=== PATIENT | female | born 1945 | race Caucasian/White ===

== ENCOUNTER 2016-11-28 09:17 | Inpatient (IN) | payer MEDICARE, OTHER ==
[~2016-11-28] VITALS: Ht 152.4 cm; Wt 90.0 kg
[2016-11-28] MEDS ORDERED: DILTIAZEM 24HR120 MG PO (17:02)
[2016-11-28] MEDS ORDERED: SYMMETREL 100100 MG PO (17:02)
[2016-11-28] MEDS ORDERED: NEURONTIN 300300 MG PO (17:02)
[2016-11-28] MEDS ORDERED: IMDUR ER TAB 3030 MG PO (17:03)
[2016-11-28] MEDS ORDERED: LASIX TAB 20 MG20 MG PO (17:03)
[2016-11-28] MEDS ORDERED: GLUCOPHAGE1000 MG PO (17:04)
[2016-11-28] MEDS ORDERED: LISINOPRIL20 MG PO (17:04)
[2016-11-28] MEDS ORDERED: SYNTHROID 50 M50 MCG PO (17:04)
[2016-11-28] MEDS ORDERED: REGLAN 10 MG TA10 MG PO (17:05)
[2016-11-28] MEDS ORDERED: OMEPRAZOLE20 MG PO (17:10)
[2016-11-28] MEDS ORDERED: MIRTAZAPINE15 MG PO (17:10)
[2016-11-28] MEDS ORDERED: REQUIP2 MG PO ×2 (17:11→17:31)
[2016-11-28] MEDS ORDERED: SERTRALINE HCL100 MG PO (17:11)
[2016-11-28] MEDS ORDERED: OXYCODONE HCL10 MG PO (17:11)
[2016-11-28] MEDS ORDERED: IBUPROFEN600 MG PO (17:12)
[2016-11-28] MEDS ORDERED: GAVILYTE-G SO4000 ML PO (17:12)
[2016-11-28 17:15] LABS: HEMOGLOBIN 11.1 gm/dl (12.3-15.3); RED BLOOD COUNT 4.06 M/UL (4.00-5.10); WHITE BLOOD COUNT 15.6 K/UL (4.5-11.0)
[2016-11-28] MEDS ORDERED: LANTUS100 UNIT/1 SQ ×2 (17:16→17:17)
[2016-11-28] MEDS ORDERED: VISTARIL 25 MG25 MG PO (17:31)
[2016-11-28 17:40] LABS: BUN/CREATININE RATIO 18 (0-10)
[2016-11-29 04:05] LABS: HEMOGLOBIN 10.9 gm/dl (12.3-15.3); RED BLOOD COUNT 4.01 M/UL (4.00-5.10); WHITE BLOOD COUNT 12.5 K/UL (4.5-11.0)
[2016-11-30 03:47] LABS: HEMOGLOBIN 9.5 gm/dl (12.3-15.3)
[2016-11-30 03:55] LABS: RED BLOOD COUNT 3.5 M/UL (4.00-5.10); WHITE BLOOD COUNT 4.9 K/UL (4.5-11.0)
[2016-12-01 05:55] LABS: HEMOGLOBIN 9.4 gm/dl (12.3-15.3); RED BLOOD COUNT 3.5 M/UL (4.00-5.10); WHITE BLOOD COUNT 5.4 K/UL (4.5-11.0)
[2016-12-01 06:09] LABS: BUN/CREATININE RATIO 32 (0-10)
[2016-12-02 03:54] LABS: HEMOGLOBIN 9.4 gm/dl (12.3-15.3); RED BLOOD COUNT 3.54 M/UL (4.00-5.10)
[2016-12-02 03:58] LABS: WHITE BLOOD COUNT 3.8 K/UL (4.5-11.0)
[2016-12-02 04:15] LABS: BUN/CREATININE RATIO 38 (0-10)
[2016-12-03 03:57] LABS: HEMOGLOBIN 9.6 gm/dl (12.3-15.3); RED BLOOD COUNT 3.58 M/UL (4.00-5.10); WHITE BLOOD COUNT 4.6 K/UL (4.5-11.0)
[2016-12-03 04:20] LABS: BUN/CREATININE RATIO 49 (0-10)
[2016-12-04 04:22] LABS: HEMOGLOBIN 9.6 gm/dl (12.3-15.3); RED BLOOD COUNT 3.61 M/UL (4.00-5.10); WHITE BLOOD COUNT 4.3 K/UL (4.5-11.0)
[2016-12-04 04:38] LABS: BUN/CREATININE RATIO 45 (0-10)
[2016-12-05 03:37] LABS: HEMOGLOBIN 10.3 gm/dl (12.3-15.3); RED BLOOD COUNT 3.82 M/UL (4.00-5.10); WHITE BLOOD COUNT 5.3 K/UL (4.5-11.0)
[2016-12-05 04:02] LABS: BUN/CREATININE RATIO 46 (0-10)
[2016-12-06 03:40] LABS: HEMOGLOBIN 10.6 gm/dl (12.3-15.3); RED BLOOD COUNT 3.85 M/UL (4.00-5.10); WHITE BLOOD COUNT 4.2 K/UL (4.5-11.0)
[2016-12-06 04:07] LABS: BUN/CREATININE RATIO 46 (0-10)
[2016-12-07 04:10] LABS: HEMOGLOBIN 11.1 gm/dl (12.3-15.3); RED BLOOD COUNT 4.1 M/UL (4.00-5.10)
[2016-12-07 04:12] LABS: BUN/CREATININE RATIO 46 (0-10)
[2016-12-07 04:15] LABS: WHITE BLOOD COUNT 7.1 K/UL (4.5-11.0)
[2016-12-08 03:30] LABS: HEMOGLOBIN 10.3 gm/dl (12.3-15.3); RED BLOOD COUNT 3.77 M/UL (4.00-5.10)
[2016-12-08 03:51] LABS: BUN/CREATININE RATIO 47 (0-10)
[2016-12-08 04:08] LABS: WHITE BLOOD COUNT 4.8 K/UL (4.5-11.0)
[2016-12-09 04:02] LABS: HEMOGLOBIN 10.2 gm/dl (12.3-15.3); RED BLOOD COUNT 3.72 M/UL (4.00-5.10); WHITE BLOOD COUNT 5.3 K/UL (4.5-11.0)
[2016-12-09 04:10] LABS: BUN/CREATININE RATIO 43 (0-10)
[2016-12-10 06:04] LABS: RED BLOOD COUNT 3.6 M/UL (4.00-5.10); WHITE BLOOD COUNT 4.8 K/UL (4.5-11.0)
[2016-12-10 06:26] LABS: BUN/CREATININE RATIO 40 (0-10)
[2016-12-11 07:07] LABS: BUN/CREATININE RATIO 40 (0-10)
[2016-12-11 07:19] LABS: HEMOGLOBIN 10.1 gm/dl (12.3-15.3); RED BLOOD COUNT 3.67 M/UL (4.00-5.10); WHITE BLOOD COUNT 5.8 K/UL (4.5-11.0)
[2016-12-12 04:54] LABS: HEMOGLOBIN 10.3 gm/dl (12.3-15.3); RED BLOOD COUNT 3.73 M/UL (4.00-5.10); WHITE BLOOD COUNT 6.2 K/UL (4.5-11.0)
[2016-12-12 04:58] LABS: BUN/CREATININE RATIO 38 (0-10)
[2016-12-13 04:22] LABS: BUN/CREATININE RATIO 30 (0-10)
[2016-12-13 04:23] LABS: HEMOGLOBIN 10.3 gm/dl (12.3-15.3); RED BLOOD COUNT 3.74 M/UL (4.00-5.10); WHITE BLOOD COUNT 8.5 K/UL (4.5-11.0)
[2016-12-14 05:04] LABS: HEMOGLOBIN 9.9 gm/dl (12.3-15.3); RED BLOOD COUNT 3.61 M/UL (4.00-5.10); WHITE BLOOD COUNT 8.4 K/UL (4.5-11.0)
[2016-12-15 10:53] LABS: HEMOGLOBIN 10.4 gm/dl (12.3-15.3); RED BLOOD COUNT 3.74 M/UL (4.00-5.10); WHITE BLOOD COUNT 10.1 K/UL (4.5-11.0)
== END 2016-12-15 14:51 | DRG 853 ==
LOC: MED SURG 4 16:30 → CCU 16:30 → MED SURG 4 12-09 19:33
PROVIDERS: Family Medicine; Internal Medicine; Internal Medicine Critical Care Medicine; Internal Medicine Infectious Disease; Internal Medicine Pulmonary Disease; ADMIT Internal Medicine
PROC: 0BH17EZ Insertion of Endotracheal Airway into Trachea, Via Natural or Artificial Opening (ICD-10-PCS; principal; 2016-11-28)
PROC: 5A1955Z Respiratory Ventilation, Greater than 96 Consecutive Hours (ICD-10-PCS; principal; 2016-11-28)
PROC: 3E0G76Z Introduction of Nutritional Substance into Upper GI, Via Natural or Artificial Opening (ICD-10-PCS; 2016-11-28)
PROC: 0B9C8ZX Drainage of Right Upper Lung Lobe, Via Natural or Artificial Opening Endoscopic, Diagnostic (ICD-10-PCS; 2016-11-29)
PROC: 0BJ08ZZ Inspection of Tracheobronchial Tree, Via Natural or Artificial Opening Endoscopic (ICD-10-PCS; 2016-11-29)
PROC: 0B9J8ZX Drainage of Left Lower Lung Lobe, Via Natural or Artificial Opening Endoscopic, Diagnostic (ICD-10-PCS; 2016-11-29)
PROC: 05HM33Z Insertion of Infusion Device into Right Internal Jugular Vein, Percutaneous Approach (ICD-10-PCS; 2016-11-30)
PROC: B543ZZA Ultrasonography of Right Jugular Veins, Guidance (ICD-10-PCS; 2016-11-30)
DX: A41.9 Sepsis, unspecified organism (principal); J18.9 Pneumonia, unspecified organism; J80 Acute respiratory distress syndrome; E87.1 Hypo-osmolality and hyponatremia; E66.2 Morbid (severe) obesity with alveolar hypoventilation; D61.818 Other pancytopenia; R00.1 Bradycardia, unspecified; T46.1X5A Adverse effect of calcium-channel blockers, initial encounter; Y92.230 Patient room in hospital as the place of occurrence of the external cause; N19 Unspecified kidney failure; D69.59 Other secondary thrombocytopenia; E87.6 Hypokalemia; E83.42 Hypomagnesemia; R53.1 Weakness; K74.69 Other cirrhosis of liver; K75.81 Nonalcoholic steatohepatitis (NASH); J84.112 Idiopathic pulmonary fibrosis; K72.90 Hepatic failure, unspecified without coma; E11.65 Type 2 diabetes mellitus with hyperglycemia; E03.9 Hypothyroidism, unspecified; F32.9 Major depressive disorder, single episode, unspecified; F51.04 Psychophysiologic insomnia; G25.81 Restless legs syndrome; G89.29 Other chronic pain; M54.9 Dorsalgia, unspecified; F41.9 Anxiety disorder, unspecified; Z88.5 Allergy status to narcotic agent; I10 Essential (primary) hypertension; Z88.8 Allergy status to other drugs, medicaments and biological substances; Z79.891 Long term (current) use of opiate analgesic; Z79.4 Long term (current) use of insulin; Z79.84 Long term (current) use of oral hypoglycemic drugs; Z79.1 Long term (current) use of non-steroidal anti-inflammatories (NSAID); Z79.899 Other long term (current) drug therapy; Z68.34 Body mass index [BMI] 34.0-34.9, adult
CPT/HCPCS: ECHO; 31500; 36415; 36600; 71010; 80048; 80053; 80202; 81001; 82550; 82553; 82803; 82962; 83036; 83735; 83880; 84100; 84132; 84443; 84484; 85025; 85027; 85610; 86022; 86140; 87015; 87040; 87070; 87086; 87102; 87116; 87205; 87278; 87390; 87496; 92610; 93005; 93306; 94002; 94003; 94660; 97110; 97530; A4628; C1751; C9113; J1120; J1335; J1650; J1652; J1940; J1956; J2543; J2920; J2930; J3370; J3480; J7030; J7050; J7070